=== PATIENT | male | born 1980 | race Caucasian/White ===

== ENCOUNTER 2017-03-04 03:06 | Emergency (ER) ==
[2017-03-04 03:11] VITALS: BP 133/77; TEMP 97.4; BMI 22.9
[2017-03-04] MEDS ORDERED: NORCO 7.5-325 MG/15 ML PO STA (03:49)
--- NOTE | 2017-03-04 03:55 | ED.PDOC ---
General ED Provider: Dr. MARY MCPHERSON Chief Complaint: Knee Pain/Injury Stated Complaint: Been hurting in rt knee, has h/o 2 times ACL repair. in past Time Seen by Physician: 03:52 Mode of Arrival: Wheelchair Information Source: Patient Nursing and Triage Documentation Reviewed and Agree: Yes Musculoskeletal Complaint Exam - Knee Pain Complaint/Exam Mechanism of Injury: Reports: No known trauma Symptoms Are: Still present Onset of Pain: Reports: Immediate Initial Severity: Moderate Location: Reports: Discrete Character: Reports: Aching Alleviating: Reports: None Aggravating: Reports: Movement, Weight bearing Associated Signs and Symptoms: Reports: Swelling. Denies: Redness, Bruising, Fever, Weakness, Numbness, Tingling Able to Bear Weight: No Septic Arthritis Risk Factors: Reports: None Gout Risk Factors: Reports: None Related Surgical History: Reports: Right Knee Knee Findings: Present: Swelling Tenderness: Present: Joint Differential Diagnoses: Sprain, Strain Review of Systems - Review Of Systems Constitutional: Reports: No symptoms Eyes: Reports: No symptoms Ears, Nose, Mouth, Throat: Reports: No symptoms Respiratory: Reports: No symptoms Cardiac: Reports: No symptoms GI: Reports: No symptoms : Reports: No symptoms Musculoskeletal: Reports: Joint pain Skin: Reports: No symptoms Neurological: Reports: No symptoms Endocrine: Reports: No symptoms Hematologic/Lymphatic: Reports: No symptoms All Other Systems: Reviewed and Negative Past Medical History - Past Medical History Previously Healthy: Yes Endocrine: Reports: None Cardiovascular: Reports: None Respiratory: Reports: None Hematological: Reports: None Gastrointestinal: Reports: None Genitourinary: Reports: None Neuro/Psych: Reports: Anxiety, Depression Musculoskeletal: Reports: None Cancer: Reports: None - Surgical History General Surgical History: Reports: Other (Menescus repair.) - Family History Family History: Reports: None - Social History Smoking Status: Current every day smoker, Heavy tobacco smoker Smoking Cessation Counseling Time: > 10 min Hx Substance Use: No Alcohol Screening: Occasionally - Immunizations Tetanus Shot up to Date: Yes Physical Exam - Physical Exam Appearance: Ill-appearing Pain Distress: Moderate Eyes: SEAMUS, EOMI, Conjunctiva clear ENT: Ears normal, Nose normal, Oropharynx normal Respiratory: Airway patent, Breath sounds clear, Breath sounds equal, Respirations nonlabored Cardiovascular: RRR, Pulses normal, No rub, No murmur GI/: Soft, Nontender, No masses, Bowel sounds normal, No Organomegaly Musculoskeletal: Limited ROM, Limited strength Skin: Warm, Dry, Normal color Neurological: Sensation intact, Motor intact, Reflexes intact, Cranial nerves intact, Alert, Oriented Psychiatric: Affect appropriate, Mood appropriate Critical Care Note - Critical Care Note Total Time (mins): 0 Course - Course Orders, Labs, Meds: Orders Category Date Time Status Hydrocodone Bit/Acetaminophen [[place] 7.5-325 mg/15 ml] MEDS 03/04/17 03:49 Stat 5 mg PO ONCE STA Vital Signs: Temp Pulse Resp BP Pulse Ox 03/04/17 03:07 97.4 F L 122 H 22 133/77 96 Departure - Departure Time of Disposition: 03:57 Disposition: HOME SELF-CARE Discharge Problem: Knee pain Condition: Good Pt referred to PMD for follow-up: Yes Additional Instructions: Rest Hot pack f/u with PMD to get MRI Prescriptions: Hydrocodone/Acetaminophen [[place] 5-325 Tablet] 1 tab PO TID PRN #7 tablet PRN Reason: PAIN Allergies/Adverse Reactions: Allergies codeine Adverse Reaction (Verified 03/04/17 03:14) ketorolac tromethamine [From Toradol] Adverse Reaction (Verified 03/04/17 03:14) Home Medications: Ambulatory Orders Alprazolam [Xanax] 0.5 mg PO TID 03/04/17 Hydrocodone/Acetaminophen [[place] 5-325 Tablet] 1 tab PO TID PRN #7 tablet Trazodone HCl 150 mg PO DAILY 03/04/17 Disposition Discussed With: Patient, Family
== END 2017-03-04 04:50 | disposition home or self-care (01) ==
LOC: ED 03:06
DX: M25.561 Pain in right knee (principal); F17.210 Nicotine dependence, cigarettes, uncomplicated
CPT/HCPCS: 99282